=== PATIENT | female | born 1970 | race Caucasian/White ===

== ENCOUNTER → 2018-03-12 | Outpatient (CLI) | payer OTHER ==
[~2018-03-12] MED LIST: LOR10 PO; LOR5 PO; METH4TAB57 PO; PER PO; TUM500 PO
--- NOTE | 2018-03-15 10:44 | RADIOLOGY IMAGING REPORT ---
FACILITY: [facility] - [place] PATIENT NAME: KALEB ZUNIGA : [id number] MR: [id number]: [id number] EXAM DATE: [id number] ORDERING PHYSICIAN: MAUREEN THOMAS TECHNOLOGIST: Ely Shulka PROCEDURE:BILATERAL DIGITAL SCREENING MAMMOGRAM WITH CAD ASSISTED INTERPRETATION & 3D TOMOSYNTHESIS COMPARISON:Prior mammograms 03/29/15, 03/07/15, 11/07/11. INDICATIONS:SCREENING FINDINGS: The breasts are extremely dense which lowers the sensivity of mammography. The parenchymal pattern has remained stable allowing for difference in mammographic technique & patient positioning. DIAGNOSTIC CATEGORY 2--BENIGN FINDING. RECOMMENDATIONS: ROUTINE MAMMOGRAM AND CLINICAL EVALUATION. IMPRESSION: BIRADS 2: Benign finding. Mammograms remain stable. Dictated by: Fernanda Bae M.D. on 03/12/2018 at 14:35 Transcribed by: HAVEN on 03/12/2018 at 14:42 Approved by: Fernanda Bae M.D. on 03/15/2018 at 10:43 [facility]
== END ==
LOC: MAMO 02:23
PROVIDERS: ATTEND Nurse Practitioner Family
DX: Z12.31 Encounter for screening mammogram for malignant neoplasm of breast (principal); Z80.3 Family history of malignant neoplasm of breast
CPT/HCPCS: 77063; 77067